=== PATIENT | female | born 1990 | race American Indian/Alaskan Native ===

== ENCOUNTER 2017-06-08 17:25 | Emergency (ER) | payer SELFPAY ==
[2017-06-08 18:04] VITALS: BP 117/72
--- NOTE | 2017-06-08 20:17 | XRay Report ---
FINAL REPORT PROCEDURE: XR KNEE 3V RT TECHNIQUE: Three views of the right knee are obtained HISTORY: right knee injury COMPARISON: No prior studies are available for comparison. FINDINGS: There is no fracture or dislocation. No arthritic changes are seen. There is no joint effusion. IMPRESSION: No abnormalities are seen.
== END 2017-06-09 00:30 | disposition left against medical advice (07) ==
LOC: ED 17:25
DX: M25.561 Pain in right knee (principal); Z53.21 Procedure and treatment not carried out due to patient leaving prior to being seen by health care provider